=== PATIENT | female | born 1970 | race American Indian/Alaskan Native ===

== ENCOUNTER 2019-04-10 19:04 | Emergency (ER) | payer BC ==
--- NOTE | 2019-04-10 19:59 | EDM.PDOC ---
ED HPI GENERAL MEDICAL PROBLEM - General Chief Complaint: Chest Pain Stated Complaint: CHEST PRESSURE/PAIN INTO JAW Time Seen by Provider: 04/10/19 19:49 - History of Present Illness INITIAL COMMENTS - FREE TEXT/NARRATIVE: 48-year-old female presents to the emergency room with chest pain. Patient had 3 episodes of chest discomfort that lasted about 5 minutes each each episode was about 15 minutes apart. First episode started around 530 this evening. She describes a substernal pain that radiated into her jaw both sides and into her lower teeth. Patient did not have any associated breathing difficulties with this no diaphoresis no nausea or vomiting. Patient has no prior history of heart disease however her brother that is 9 years older had a heart attack and she had a grand parent that in her 50s of a heart attack. The patient does not smoke or use illicit drugs. - Related Data Allergies Allergy/AdvReac Type Severity Reaction Status Date / Time Penicillins Allergy Airway Verified 04/10/19 19:20 Tightness Home Meds: Home Meds Lisinopril/Hydrochlorothiazide [Lisinopril-Hctz 20-12.5 mg Tab] 1 tab PO DAILY 04/10/19 [History] Past Medical History Cardiovascular History: Reports: Hypertension - Past Surgical History Female Surgical History: Reports: Section, Hysterectomy Social & Family History - Tobacco Use Smoking Status *Q: Never Smoker - Caffeine Use Caffeine Use: Reports: Coffee - Recreational Drug Use Recreational Drug Use: No ED ROS GENERAL - Review of Systems Review Of Systems: See Below Constitutional: Reports: No Symptoms HEENT: Reports: No Symptoms Respiratory: Reports: No Symptoms Cardiovascular: Reports: Chest Pain, Edema (This is an ongoing chronic problem) . Denies: Dyspnea on Exertion Endocrine: Reports: No Symptoms GI/Abdominal: Reports: No Symptoms : Reports: No Symptoms Skin: Reports: No Symptoms ED EXAM, GENERAL - Physical Exam Exam: See Below Exam Limited By: No Limitations General Appearance: Alert, No Apparent Distress Head: Atraumatic, Normocephalic Neck: Normal Inspection, Supple, Non-Tender, Full Range of Motion Respiratory/Chest: No Respiratory Distress, Lungs Clear, Normal Breath Sounds Cardiovascular: Normal Peripheral Pulses, Regular Rate, Rhythm GI/Abdominal: Normal Bowel Sounds, Soft, Non-Tender Back Exam: No: CVA Tenderness (L), CVA Tenderness (R) Extremities: Other (Scant edema) EKG INTERPRETATION Rhythm: Other (Borderline first-degree AV block) [place]: LAD-Left [place] Deviation P-Wave: Present QRS: Normal ST-T: Normal QT: Normal Comparison: NA - No Prior EKG EKG Interpretation Comments: Borderline Course - Vital Signs Last Recorded V/S: Last Vital Signs Temp 35.9 C 04/10/19 19:12 Pulse 80 04/10/19 19:12 Resp 13 04/10/19 19:12 BP 114/62 04/10/19 19:12 Pulse Ox 96 04/10/19 19:12 - Orders/Labs/Meds Orders: Active Orders 24 hr Category Date Time Status EKG Documentation Completion [RC] ASDIRECTED Care 04/10/19 19:24 Active EKG 12 Lead [EK] Stat Ther 04/10/19 19:24 Ordered Labs: Laboratory Tests 04/10/19 04/10/19 Range/Units 20:10 20:10 WBC 7.70 (3.98-10.04) K/mm3 RBC 5.01 (3.98-5.22) M/mm3 Hgb 13.8 (11.2-15.7) gm/dl Hct 40.7 (34.1-44.9) % MCV 81.2 (79.4-94.8) fl MCH 27.5 (25.6-32.2) pg MCHC 33.9 (32.2-35.5) g/dl RDW Std Deviation 41.4 (36.4-46.3) fL Plt Count 203 (182-369) K/mm3 MPV 10.3 (9.4-12.3) fl Neut % (Auto) 56.6 (34.0-71.1) % Lymph % (Auto) 29.0 (19.3-51.7) % Gates % (Auto) 6.8 (4.7-12.5) % Eos % (Auto) 6.6 H (0.7-5.8) Baso % (Auto) 0.4 (0.1-1.2) % Neut # (Auto) 4.36 (1.56-6.13) K/mm3 Lymph # (Auto) 2.23 (1.18-3.74) K/mm3 Gates # (Auto) 0.52 H (0.24-0.36) K/mm3 Eos # (Auto) 0.51 H (0.04-0.36) K/mm3 Baso # (Auto) 0.03 (0.01-0.08) K/mm3 Manual Slide Review Normal smear Sodium 141 (136-145) mEq/L Potassium 3.3 L (3.5-5.1) mEq/L Chloride 103 (98-107) mEq/L Carbon Dioxide 27 (21-32) mEq/L Anion Gap 14.3 (5-15) BUN 16 (7-18) mg/dL Creatinine 0.8 (0.55-1.02) mg/dL Est Cr Clr Drug Dosing 74.26 mL/min Estimated GFR (MDRD) > 60 (>60) mL/min BUN/Creatinine Ratio 20.0 H (14-18) Glucose 93 (74-106) mg/dL Calcium 9.0 (8.5-10.1) mg/dL Total Bilirubin 0.7 (0.2-1.0) mg/dL AST 18 (15-37) U/L ALT 32 (14-59) U/L Alkaline Phosphatase 66 (46-116) U/L Troponin I < 0.017 (0.00-0.056) ng/mL Total Protein 8.0 (6.4-8.2) g/dl Albumin 3.8 (3.4-5.0) g/dl Globulin 4.2 gm/dL Albumin/Globulin Ratio 0.9 L (1-2) Meds: Medications Discontinued Medications Generic Name Dose Route Start Last Admin Trade Name Freq PRN Reason Stop Dose Admin Aspirin 324 mg 04/10/19 20:01 04/10/19 20:22 Aspirin PO 04/10/19 20:02 324 mg ONETIME ONE Administration - Re-Assessments/Exams Free Text/Narrative Re-Assessment/Exam: 04/10/19 22:33 She has remained pain-free since being here in the emergency room. Chest x-ray unremarkable no acute changes noted on EKG. Troponin negative remaining labs unremarkable. Patient will be discharged encouraged to follow-up with her regular physician discussed getting a stress Cardiolite versus stress echo. And she will start daily baby aspirin. Departure - Departure Time of Disposition: 22:35 Disposition: Home, Self-Care 01 Clinical Impression: Chest pain Referrals: PCP,Not In Area [Primary Care Provider] - Forms: ED Department Discharge Additional Instructions: Return to the emergency room with any questions problems or worsening symptoms. Start baby aspirin 81 mg enteric-coated 1 daily. Follow-up with your regular physician either this week or next week, and discuss getting a stress Cardiolite or stress echo done. Sepsis Event Note - Evaluation Sepsis Screening Result: No Definite Risk - Focused Exam Vital Signs: Vital Signs Temp Pulse Resp BP Pulse Ox 04/10/19 19:12 35.9 C 80 13 114/62 96 Date Exam was Performed: 04/10/19 Time Exam was Performed: 22:31 - My Orders Last 24 Hours: My Active Orders 04/10/19 19:24 EKG Documentation Completion [RC] ASDIRECTED EKG 12 Lead [EK] Stat - Assessment/Plan Last 24 Hours: My Active Orders 04/10/19 19:24 EKG Documentation Completion [RC] ASDIRECTED EKG 12 Lead [EK] Stat
[2019-04-10] MEDS ORDERED: Aspirin 81 MG Tab.Chew PO ONE (20:01)
--- NOTE | 2019-04-10 20:33 | CR ---
Chest: Portable view of the chest was obtained. Comparison: No prior chest x-ray. Heart size and mediastinum are normal for portable technique. Lungs are clear with no acute parenchymal change. Bony structures are grossly intact. Impression: 1. Nothing acute is seen on portable chest x-ray. Diagnostic code #1 This report was dictated in [place] Standard Time
== END 2019-04-10 22:54 | disposition home or self-care (01) ==
LOC: JD.ED 19:04
DX: R07.2 Precordial pain (principal); I10 Essential (primary) hypertension; Z88.0 Allergy status to penicillin; Z79.899 Other long term (current) drug therapy
CPT/HCPCS: 36415; 71045; 80053; 84484; 85025; 93005; 99285; A9270; 93010; 99283

== ENCOUNTER 2022-05-30 03:43 | Emergency (ER) | payer SELFPAY ==
[2022-05-30] MEDS ORDERED: Sodium Chloride 0.9% 10 ML Syringe FLUSH PRN (04:01)
[2022-05-30 04:32] LABS: HEMOGLOBIN A1C 5.9 %
[2022-05-30] MEDS ORDERED: Levothyroxine 125 MCG Tab PO ONE (05:31)
== END 2022-05-30 05:30 | disposition home or self-care (01) ==
LOC: JD.ED 03:43
DX: I47.1 Supraventricular tachycardia (principal); E06.3 Autoimmune thyroiditis; I10 Essential (primary) hypertension; E11.9 Type 2 diabetes mellitus without complications; E66.9 Obesity, unspecified; Z68.42 Body mass index [BMI] 45.0-49.9, adult; Z88.0 Allergy status to penicillin; Z79.899 Other long term (current) drug therapy
CPT/HCPCS: 36415; 71045; 71045-26; 80053; 82553; 83036; 83735; 83880; 84443; 84484; 85025; 85610; 85730; 86140; 93005; 93010; 99284; 99285; A9270-GY